=== PATIENT | female | born 1980 | race Two or more races ===

== ENCOUNTER 2018-10-22 19:59 | Emergency (ER) | payer BC, OTHER ==
[~2018-10-22] VITALS: Ht 160 cm; Wt 78.0 kg
--- NOTE | 2018-10-22 20:24 | NUR ---
PATIENT WAS SEEN BY . SHE IS A/A/O X3 IN NO DISTRESS. DC, RX (INCLUDING PRECAUTIONS) AND FOLLOW UP INSTRUCTIONS GIVEN AND EXPLAINED TO PATIENT WHO STATES SHE UNDERSTANDS ALL INSTRUCTIONS.
== END 2018-10-22 20:35 | disposition home or self-care (01) ==
LOC: ER 20:00
DX: S40.012A Contusion of left shoulder, initial encounter (principal); S16.1XXA Strain of muscle, fascia and tendon at neck level, initial encounter; M54.5 Low back pain; V49.9XXA Car occupant (driver) (passenger) injured in unspecified traffic accident, initial encounter; Y93.89 Activity, other specified; Y92.89 Other specified places as the place of occurrence of the external cause; Y99.8 Other external cause status
CPT/HCPCS: A4663